=== PATIENT | female | born 1970 | race Caucasian/White ===

== ENCOUNTER 2017-12-28 21:51 | Emergency (ER) | payer OTHER, MEDICAID ==
[2017-12-29] MEDS: ENALAPRILAT 1.25 MG INJ IV (03:05)
[2017-12-29] MEDS: morphine 4 MG/ML VIAL IV (03:05)
[2017-12-29] MEDS: ONDANSETRON 4 MG INJ IV (03:05)
[2017-12-29 03:06] LABS: ADD MAN DIFF? NO
[2017-12-29 03:07] LABS: WHITE BLOOD COUNT 5.7 10^3/ul (4.8-10.8)
[2017-12-29 03:07] LABS: ABNORMAL IP MESSAGE 1; BASOPHILS % 0.5 % (0.0-2.0); EOSINOPHILS # 0.1 10^3/ul (0.0-0.5); EOSINOPHILS % 2.3 % (0.0-7.0); HEMATOCRIT 37.9 % (37.0-47.0); HEMOGLOBIN 11.1 g/dl (12.0-16.0); LYMPHOCYTES # 1.7 10^3/ul (0.8-2.9); LYMPHOCYTES % 30.6 % (15.0-51.0); MEAN CORPUSCULAR HGB CONC 29.3 g/dl (32.0-37.0); MEAN CORPUSCULAR VOLUME 68.4 fl (82.0-101.0); MONOCYTE # 0.4 10^3/ul (0.3-0.9); MONOCYTES % 7.7 % (0.0-11.0); NEUTROPHIL # 3.3 10^3/ul (1.6-7.5); NEUTROPHILS % 58.7 % (39.0-77.0); PLATELET COUNT 260 10^3/UL (140-415); RED BLOOD COUNT 5.54 10^6/ul (4.20-5.40); RED CELL DISTRIBUTION WIDTH 19.2 % (11.5-14.5)
[2017-12-29] MEDS: SOD CHLORIDE 0.9% 1,000 ML IV (03:12)
[2017-12-29 03:15] LABS: POSITIVE DIFF @See below
[2017-12-29 03:35] LABS: ADD UMIC YES; UR ASCORBIC ACID NEGATIVE (NEGATIVE); UR BILIRUBIN (Dip) NEGATIVE (NEGATIVE); UR BLOOD (Dip) 2+ mg/dL (NEGATIVE); UR CLARITY SLIGHTLY CLOUDY (CLEAR); UR COLOR YELLOW (YELLOW); UR GLUCOSE (Dip) NEGATIVE (NEGATIVE); UR KETONES (Dip) NEGATIVE (NEGATIVE); UR LEUKOCYTE ESTERASE (Dip) NEGATIVE Leu/ul (NEGATIVE); UR MUCUS FEW /HPF (NONE SEEN); UR NITRITE (Dip) NEGATIVE (NEGATIVE); UR RBC 0 /HPF (0-5); UR SPECIFIC GRAVITY (Dip) 1.021 (1.003-1.030); UR SQUAMOUS EPITHELIAL CELL FEW /HPF (FEW); UR TOTAL PROTEIN (Dip) NEGATIVE (NEGATIVE); UR UROBILINOGEN (Dip) NEGATIVE (NEGATIVE); UR WBC 2 /HPF (0-5)
[2017-12-29 04:25] LABS: ALANINE AMINOTRANSFERASE 27 IU/L (13-69); ALBUMIN 4.5 g/dl (3.3-4.9); ALBUMIN/GLOBULIN RATIO 1.36; ALKALINE PHOSPHATASE 113 IU/L (42-121); ANION GAP 17 (8-16); ASPARTATE AMINO TRANSFERASE 20 IU/L (15-46); BILIRUBIN,INDIRECT 0.2 mg/dl (0-1.1); BILIRUBIN,TOTAL 0.2 mg/dl (0.2-1.3); BLOOD UREA NITROGEN 14 mg/dl (7-20); CALCIUM 9.3 mg/dl (8.4-10.2); CARBON DIOXIDE 25 mmol/L (21-31); CHLORIDE 105 mmol/L (97-110); CREATININE 0.68 mg/dl (0.44-1.00); GLUCOSE 125 mg/dl (70-220); LIPASE 81 U/L (23-300); POTASSIUM 3.8 mmol/L (3.5-5.1); SODIUM 143 mmol/L (135-144); TOTAL PROTEIN 7.8 g/dl (6.1-8.1)
[2017-12-29 04:40] LABS: TROPONIN-I < 0.012 ng/ml (0.00-0.12)
== END 2017-12-29 04:35 | disposition home or self-care (01) ==
LOC: E/R 21:51
DX: M54.5 Low back pain (principal); I10 Essential (primary) hypertension
CPT/HCPCS: 36415; 71045; 80053; 81001; 83690; 84484; 85025; 93005; 96374; 96375; 99285-25

== ENCOUNTER 2018-03-02 06:11 | Day surgery (SDC) | payer OTHER ==
[~2018-03-02 06:11] MED LIST: CEFAZOLIN 2 GM/50 ML (PMX) 50 ML IVPB; LACTATED RINGER'S 1,000 ML IV*
[2018-03-02] MEDS ORDERED: CEFAZOLIN 1 GM INJ (07:00)
[2018-03-02] MEDS ORDERED: PROPOFOL 200 MG INJ (07:00)
[2018-03-02] MEDS ORDERED: DEXAMETHASONE 4 MG/ML 1 ML INJ (07:22)
[2018-03-02] MEDS ORDERED: ONDANSETRON 4 MG INJ (07:22)
[2018-03-02] MEDS ORDERED: MIDAZOLAM 1 MG/ML 2 ML INJ (07:22)
[2018-03-02] MEDS ORDERED: FENTAnyl 50 MCG/ML VIAL (07:22)
[2018-03-02] MEDS ORDERED: LIDOCAINE 2% (SDV) 5 ML INJ ×2 (07:22→07:35)
[2018-03-02] MEDS ORDERED: PROPOFOL 20 ML (07:22)
[2018-03-02] MEDS ORDERED: ACETAMINOPHEN 1000MG/100ML IV 100 ML (07:22)
[2018-03-02] MEDS ORDERED: FENTAnyl 50 MCG/ML VIAL IV ×2 (09:00)
[2018-03-02] MEDS ORDERED: ONDANSETRON 4 MG INJ IV (09:00)
[2018-03-02] MEDS ORDERED: hydrALAzine 20 MG INJ IV (09:00)
[2018-03-02] MEDS ORDERED: MEPERIDINE 25 MG INJ IV (09:00)
[2018-03-02] MEDS ORDERED: LABETALOL HCL 20MG INJ IV (09:00)
[2018-03-02] MEDS ORDERED: HYDROmorphONE (0.2 MG/ML) 10ML SYG IV ×2 (09:00)
[2018-03-02] MEDS ORDERED: KETOROLAC 30 MG INJ (09:02)
== END 2018-03-02 10:55 | disposition home or self-care (01) ==
LOC: SDS 06:11
DX: N92.0 Excessive and frequent menstruation with regular cycle (principal); I10 Essential (primary) hypertension
CPT/HCPCS: 58558; 88304